=== PATIENT | female | born 1980 | race American Indian/Alaskan Native ===

== ENCOUNTER 2016-09-25 14:50 | Outpatient (CLI) | payer BC ==
--- NOTE | 2016-09-25 15:26 | XRay Report ---
Right foot 3 views: History: Edema. Findings: No fracture, periosteal reaction or lytic lesion. Impression: No evidence of acute fracture.
== END 2016-09-25 14:51 | disposition home or self-care (01) ==
LOC: SPVIMAG 14:50
DX: M25.474 Effusion, right foot (principal)